=== PATIENT | male | born 1960 | race American Indian/Alaskan Native ===

== ENCOUNTER 2018-01-22 08:30 | Emergency (ER) | payer OTHER, MEDICAID ==
[2018-01-22 08:55] VITALS: BP 128/89
[2018-01-22] MEDS ORDERED: MOTRIN PO ONE (11:05)
--- NOTE | 2018-01-22 11:05 | Emergency Department Report ---
HPI - General Chief Complaint: Fall Time Seen by Provider: 01/22/18 10:46 - HPI HPI: Patient is a 57-year-old male who presents to ED complaining of neck pain status post fall last night. Patient states he was sitting on a rail not as high as a chair when he fell backwards and hit the floor. Patient states he had no loss of consciousness after his event. This is associated with given up and had some neck pain and a mild intermittent headache. Patient states he took tramadol which relieved his pain. Patient states he is not having as much pain today. He denies blurry vision, nausea, vomiting, abdominal pain, chest pain shortness of breath or any other symptoms. Patient describes pain as throbbing and aching in nature that hurts with movement. ED Past Medical Hx - Past Medical History Previous Medical History?: Yes Hx Hypertension: Yes Hx Arthritis: Yes Hx Tuberculosis: Yes (2008) - Surgical History Past Surgical History?: Yes Additional Surgical History: right knee replacement, Fx pelvis with plates, Left hip surgery, Ruptured bladder with removeal of blood clots from bladder - Social History Smoking Status: Current Every Day Smoker Substance Use Type: Alcohol, Cocaine, Prescribed - Medications Home Medications: Home Medications Medication Instructions Recorded Confirmed Last Taken Type Albuterol Sulfate [Proventil HFA] 1 - 2 puff IH Q4H PRN 11/15/13 11/15/13 05:45 History Ascorbate Calcium [Vitamin C] 500 mg PO QDAY 11/15/13 11/15/13 11/08/13 History Aspirin [Aspirin TAB] 81 mg PO QDAY 11/15/13 11/15/13 11/15/13 05:45 History Atenolol [Tenormin] 25 mg PO DAILY 11/15/13 11/15/13 11/15/13 05:45 History Ferrous Sulfate [Ferrous Sulfate 325 mg PO QDAY 11/15/13 11/15/13 11/08/13 History Oral Liq 300 Mg/5 Ml] Hydrochlorothiazide 12.5 mg PO QDAY 11/15/13 11/15/13 11/15/13 05:45 History Hydrocodone Bit/Acetaminophen 1 each PO Q6H PRN 11/15/13 11/15/13 11/14/13 History [Lortab 7.5-500 mg] Multivitamin [Multi-Vitamin Daily] 1 tab PO QDAY 11/15/13 11/15/13 11/08/13 History Rivaroxaban [Xarelto] 10 mg PO QDAY 11/15/13 11/15/13 11/08/13 History Naproxen [Naprosyn] 375 mg PO BID #20 tablet 01/22/18 Unknown Rx traMADol [Ultram 50 MG tab] 50 mg PO Q6HR PRN #20 tablet 01/22/18 Unknown Rx ED Review of Systems ROS: Stated complaint: HEAD/NECK PAIN/FALL Other details as noted in HPI Constitutional: denies: chills, fever Eyes: denies: eye pain, eye discharge, vision change ENT: denies: ear pain, throat pain Respiratory: denies: cough, shortness of breath, wheezing Cardiovascular: denies: chest pain, palpitations Endocrine: no symptoms reported Gastrointestinal: denies: abdominal pain, nausea, diarrhea Genitourinary: denies: urgency, dysuria Musculoskeletal: denies: back pain, joint swelling, arthralgia Skin: denies: rash, lesions Neurological: denies: headache, weakness, paresthesias Psychiatric: denies: anxiety, depression Hematological/Lymphatic: denies: easy bleeding, easy bruising Physical Exam - Physical Exam Vital Signs: Vital Signs 01/22/18 08:52 Temperature 97.5 F L Pulse Rate 76 Respiratory 20 Rate Blood Pressure 128/89 O2 Sat by Pulse 95 Oximetry Physical Exam: GENERAL: Alert and oriented x3, no apparent distress, Normal Gait, atraumatic. HEAD: Head is normocephalic and a-traumatic. EYES: Extra ocular muscles are intact. Pupils are equal, round, and reactive to light and accommodation. NECK: Supple. Non edematous,. No lymphadenopathy or thyromegaly. No C-spine tenderness. Full range of motion LUNGS: Symetrical with respiration, No wheezing, no rales or crackles, CTAB. HEART: S1, S2 present, regular rate and rhythm without murmur, no rubs, no gallops. Non tender to palpation ABDOMEN: No organomegaly was noted,Positive bowel sounds, soft, and non- distended. . Nontender to palpation on all Quadrants, NO CVA tenderness. BACK: Full range of motion, no spinal tenderness, nontender to palpation. EXTREMITIES/MUSCULOSKELETAL: No cyanosis, clubbing, rash, lesions or edema. Full ROM bilaterally. UE/LE Pulses 2+ bilaterally. NEUROLOGIC: The patient is cooperative with no focal neurologic deficits. Cranial nerves II through XII are grossly intact. Normal speech. Normal sensation in bilateral upper and lower extremities, SKIN: Warm and dry, No lesions, No ulceration or induration present. ED Course Vital Signs 01/22/18 08:52 Temperature 97.5 F L Pulse Rate 76 Respiratory 20 Rate Blood Pressure 128/89 O2 Sat by Pulse 95 Oximetry ED Medical Decision Making - Radiology Data Radiology results: report reviewed, image reviewed Fluoro Time In Minutes: CERVICAL SPINE, 3 views: History: Neck pain. Findings: The vertebral bodies, disk spaces, posterior elements and prevertebral soft tissues are are intact. The dens is intact. No acute fracture or malalignment is identified. Mild to moderate disc space narrowing and marginal spurring is identified at C4-5 and C5-6. Impression: Cervical spondylosis which is most pronounced at C4-5 and C5-6. No acute process. Transcribed By: TTR Dictated By: PAULINE PRICE JR, MD Electronically Authenticated By: PAULINE PRICE JR, MD Signed Date/Time: 01/22/18 1129 - Medical Decision Making 57-year-old male presents to ED with myalgia is status post fall ED course: Patient received Motrin in ED. Vital signs are normal patient is in no acute distress Discussed with patient follow-up with primary care physician. Discussed the patient and take medications as prescribed. Patient has no neurological deficit. Patient is alert and oriented 3 and understands all instructions given. Discussed drowsiness effect of tramadol makes her drowsy and not to operate machinery while taking tramadol Critical care attestation.: If time is entered above; I have spent that time in minutes in the direct care of this critically ill patient, excluding procedure time. ED Disposition Clinical Impression: Neck muscle strain Qualifiers: Encounter type: initial encounter Qualified Code(s): S16.1XXA - Strain of muscle, fascia and tendon at neck level, initial encounter Fall Qualifiers: Encounter type: initial encounter Qualified Code(s): W19.XXXA - Unspecified fall, initial encounter Disposition: - TO HOME OR SELFCARE Is pt being admited?: No Does the pt Need Aspirin: No Condition: Stable Instructions: Muscle Strain (ED), Cervical Spine Strain (ED) Additional Instructions: Make sure to follow up with the primary care physician as discussed. Take all your medications as you've been prescribed. If you have any worsening symptoms or develop new symptoms please return to ED immediately. Prescriptions: Naproxen [Naprosyn] 375 mg PO BID #20 tablet traMADol [Ultram 50 MG tab] 50 mg PO Q6HR PRN #20 tablet PRN Reason: Pain Referrals: PRIMARY CARE, [Primary Care Provider] - 3-5 Days [facility] [Outside] - 3-5 Days [facility] [Outside] - 3-5 Days Forms: Accompanied Note, Work/School Release Form(ED) Time of Disposition: 12:03
--- NOTE | 2018-01-22 11:37 | XRay Report ---
CERVICAL SPINE, 3 views: History: Neck pain. Findings: The vertebral bodies, disk spaces, posterior elements and prevertebral soft tissues are are intact. The dens is intact. No acute fracture or malalignment is identified. Mild to moderate disc space narrowing and marginal spurring is identified at C4-5 and C5-6. Impression: Cervical spondylosis which is most pronounced at C4-5 and C5-6. No acute process.
== END 2018-01-22 12:14 | disposition home or self-care (01) ==
LOC: ED 08:30
DX: S16.1XXA Strain of muscle, fascia and tendon at neck level, initial encounter (principal); R51 Headache; I10 Essential (primary) hypertension; M19.90 Unspecified osteoarthritis, unspecified site; Z86.11 Personal history of tuberculosis; F17.200 Nicotine dependence, unspecified, uncomplicated; F14.10 Cocaine abuse, uncomplicated; Z96.651 Presence of right artificial knee joint; Z91.040 Latex allergy status; Z91.030 Bee allergy status; W18.09XA Striking against other object with subsequent fall, initial encounter; Y93.89 Activity, other specified; Y99.8 Other external cause status; Y92.89 Other specified places as the place of occurrence of the external cause
CPT/HCPCS: 72040